=== PATIENT | male | born 1980 | race Caucasian/White ===

== ENCOUNTER 2023-01-12 08:59 | Emergency (ER) | payer OTHER ==
[2023-01-12 09:14] VITALS: BP 149/86; PULSE 80
== END 2023-01-12 09:28 | disposition home or self-care (01) ==
LOC: VM.ED 08:59
DX: S01.01XA Laceration without foreign body of scalp, initial encounter (principal); J45.909 Unspecified asthma, uncomplicated; E66.9 Obesity, unspecified; Z88.8 Allergy status to other drugs, medicaments and biological substances; Z91.048 Other nonmedicinal substance allergy status; W31.89XA Contact with other specified machinery, initial encounter; Y93.01 Activity, walking, marching and hiking
CPT/HCPCS: 99282